=== PATIENT | male | born 1955 | race Caucasian/White ===

== ENCOUNTER 2016-10-25 18:35 | Inpatient (IN) | payer MEDICARE, OTHER ==
--- NOTE | ~2016-10-25 | CN ---
Consultation Report [facility] [address] [place]. [address] NAME: MARY PERES : 55 STATUS : ADM IN [facility]#: [id number] AGE: 60 ADM/REG DATE : 10/25/16 MR#: [id number] REPORT SERV DATE: 10/26/16 DICTATED BY: NATHAN BURGOS DATE: 10/26/16 REPORT STATUS : Draft TRANSCRIBED BY: MODL DATE: 10/26/16 INFECTIOUS DISEASE CONSULT DATE OF CONSULTATION: 10/26/2016 REASON FOR CONSULTATION: Cellulitis after cat bite. 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 Yesterday morning while breaking up a fight between two cats, he suffered bites and scratches to his right wrist area. He developed progressive swelling and redness and presented to the emergency department at [facility] yesterday evening. He was given a dose of Unasyn after initially Augmentin and then was admitted for further treatment. Blood cultures were obtained after antibiotics. The patient was evaluated by Dr. Micha Lu, who did not feel he had evidence of tenosynovitis or an abscess and recommend further antibiotic therapy and reassessment. The patient complains of pain. He denies any fevers or chills, and he has been afebrile here. PAST MEDICAL HISTORY: In addition to the above is notable for history of atrial fibrillation, chronic back pain on chronic narcotic pain medicines, BPH, hyperlipidemia, anxiety disorder. ALLERGIES: NO KNOWN DRUG ALLERGIES. OUTPATIENT MEDICATIONS: Include Lipitor, Valium, Flonase, Neurontin, MS Contin, Percocet, Protonix, Flomax, Zanaflex, Jantoven. SOCIAL HISTORY: Long-term smoker. Nondrinker. FAMILY HISTORY: Notable for heart disease. REVIEW OF SYSTEMS: Otherwise unremarkable. No nausea, vomiting, or diarrhea. PHYSICAL EXAMINATION: VITAL SIGNS: This is a 55 kg man. He has been afebrile since admission. Blood pressure 118/70, pulse 82, respiratory rate 16. GENERAL: He is alert. He complains of needing more pain medicine. HEAD AND NECK: Shows a clear oral cavity without thrush. LUNGS: Clear to auscultation. CARDIAC: Shows a regular rhythm. Normal S1, S2. Soft, 1/6 systolic murmur, left sternal border. ABDOMEN: Nondistended, soft, nontender. SKIN: Without rash. Consultation Report [address] [place]. [address] NAME: MRAY PERES : 55 STATUS : ADM IN [facility]#: [id number] AGE: 60 ADM/REG DATE : 10/25/16 MR#: [id number] REPORT SERV DATE: 10/26/16 DICTATED BY: NATHAN BURGOS DATE: 10/26/16 REPORT STATUS : Draft TRANSCRIBED BY: NATAN DATE: 10/26/16 EXTREMITIES: The patient has cellulitis changes over the right wrist extending somewhat onto the dorsum of the hand and lower forearm with soft tissue edema and mild tenderness to palpation. He does not have significant pain with range of motion of the wrist itself or with passive range of motion of his fingers. No areas of fluctuance. He has a peripheral IV without phlebitis. LABORATORY STUDIES: Admission white blood cell count was 15.2, repeat 14.7; hemoglobin 15.3; platelets 163. Creatinine 0.68. Chest x-ray is negative. Right wrist x-ray just shows some soft tissue swelling with a bit of soft tissue gas over the posterior ulnar aspect of the right wrist. IMPRESSION: Cellulitis of the right wrist and forearm following a cat bite and scratches in the patient with a history of tricuspid valve repair. PLAN: Agree with the empiric Unasyn and we will reassess tomorrow morning. YORDY/NATAN Nathan Burgos M.D. / [id number] CC: Kam Solorzano M.D. Brian Smith, M.D.
--- NOTE | ~2016-10-25 | DS ---
Discharge Summary [facility] [address] [place]. [address] NAME: MARY PERES : 55 STATUS : DIS IN PAT#: [id number] AGE: 60 ADM/REG DATE : 10/25/16 MR#: [id number] REPORT SERV DATE: 10/30/16 DICTATED BY: KEVON PONCE DATE: 10/29/16 REPORT STATUS : Draft TRANSCRIBED BY: MODL DATE: 10/29/16 ADMISSION DATE: 10/25/2016 DISCHARGE DATE: 10/29/2016 DISCHARGE DIAGNOSES: Include: 1. Right wrist and hand cellulitis secondary to a cat bite. 2. Chronic pain disorder. 3. Chronic tobacco dependence. 4. Chronic anxiety. 5. Chronic atrial fibrillation. 6. 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 DISCHARGE MEDICATIONS: As follows: Lipitor 40 mg at bedtime, Valium 10 mg three times a day, Flonase nasal spray daily to each nostril, Neurontin 300 mg three times a day, MS Contin 15 mg sustained release twice a day, Protonix 40 mg daily, Flomax 0.4 mg daily, Zanaflex 4 mg three times a day, Jantoven 2.5 mg daily, Percocet 10/325 one tablet every six hours p.r.n. for pain, and Augmentin 875 mg p.o. twice a day for two weeks, prescription written by Infectious Disease, Dr. Timur Burgos. HISTORY OF PRESENT ILLNESS: A pleasant 60-year-old white male, presented with right wrist redness, swelling, and pain. Please see initial H and P of Dr. Ursula Marie. The patient was admitted to the Hospitalist Service for further evaluation and treatment. He was started on empiric antibiotic therapy. Lab work was ordered and followed. CONSULTANTS DURING THIS ADMISSION: Include Orthopedic, Dr. Micha Lu and Infectious Disease, Dr. Timur Burgos. CONTINUATION OF HOSPITAL COURSE: The patient did well, tolerated his antibiotics and the swelling and redness slowly began to subside each day. He was evaluated by Ortho Hand and followed closely if debridement was needed; however, this was not the case. Infectious Disease continued to follow him closely as well. His Unasyn antibiotic was continued through his admission. 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 There was a small area of fluctuance on the top that only expressed some small amount of serous fluid and bloody fluid. No pustulous discharge was noted and given his continued improvement with therapy, the patient was felt safe for discharge home on 10/29/2016 to follow up with his primary care as scheduled and he will continue antibiotics of Augmentin for two weeks. The patient was in agreement with this plan going forward. Questions were answered at bedside. I appreciate the assistance of the consultants on this case. DICTATED BY: Kevon Ponce NP CSC/NATAN Discharge Summary [address] [address] NAME: MARY PERES : 55 STATUS : DIS IN PAT#: [id number] AGE: 60 ADM/REG DATE : 10/25/16 MR#: [id number] REPORT SERV DATE: 10/30/16 DICTATED BY: KEVON PONCE DATE: 10/29/16 REPORT STATUS : Draft TRANSCRIBED BY: NATAN DATE: 10/29/16 Kevon Ponce NP / [id number] CC: MD Blayne Barroso M.D.
--- NOTE | ~2016-10-25 | HP ---
History And Physical [place] [id number] [facility] [place]. [address] NAME: MARY PERES : 55 STATUS : ADM IN [facility]#: [id number] AGE: 60 ADM/REG DATE : 10/25/16 MR#: [id number] REPORT SERV DATE: 10/26/16 DICTATED BY: URSULA MCBRIDE DATE: 10/25/16 REPORT STATUS : Draft TRANSCRIBED BY: MODL DATE: 10/25/16 DATE OF ADMISSION: 10/25/2016 CHIEF COMPLAINT: Right wrist redness, swelling, and pain after bitten by his cat this morning. HISTORY OF PRESENT ILLNESS: This is a very pleasant, 60 years old gentleman with extensive past medical history significant for Ebstein abnormality with tricuspid repair as well as CABG in 2005 at the [facility] [place], history of chronic right-sided congestive heart failure with tricuspid regurgitation, history of atrial fibrillation on chronic anticoagulation, peripheral vascular disease, BPH, hyperlipidemia, chronic pain on chronic narcotics, and history of tobacco abuse presenting today to [facility] with red wrist pain redness and swelling that started in the afternoon after he has been bitten by his cat this morning. According to the patient, his cat got into argument with another cat and according to the patient, he went to separate the cats and as a result, his cat bit him, and he bled slightly since he was on Coumadin. He has a little bit discomfort but no significant other changes at that time. He went and drove to [place], [place] and around 2 o'clock in the afternoon he started to see a little bit swelling and redness and discomfort. He went to a store to take some extl-mst-sfxofgl medications but he has been advised to come to [facility] for further evaluation and treatment. He did not have any fever and chills. He has not had any chest pain or increasing shortness of breath. No cough. No sputum production. No other complaints. It is important to note that he has been evaluated in the emergency room and after speaking with Dr. Micha Lu, the Ortho Hand on-call, he has been admitted to Hospitalist Service for further evaluation and recommendation. PAST MEDICAL HISTORY: Significant for coronary artery disease with Ebstein abnormalities and tricuspid repair in 2005. He has a right-sided heart failure chronic with tricuspid regurgitation, tobacco abuse, chronic history of atrial fibrillation rate control with chronic anticoagulation, chronic pain on chronic narcotics, BPH, peripheral vascular disease, anxiety disorder, and hyperlipidemia. PAST SURGICAL HISTORY: Include Ebstein abnormality repair and coronary artery bypass surgery. Also, he had a leg fracture repair and prior exploratory laparotomy. SOCIAL HISTORY: He smoke 3/4 pack a day for 40 years. No alcohol. No IV drugs. ALLERGIES: HE DOES NOT HAVE ANY DRUG ALLERGIES. FAMILY HISTORY: Significant for heart disease. MEDICATIONS: At home include Lipitor, Valium, Flonase, Neurontin, MS Contin, Percocet, Protonix, Flomax, Zanaflex, and Jantoven. REVIEW OF SYSTEMS: A 14-point review of systems has been obtained, and pertinent positive has been listed into History And Physical [address] [address] NAME: MARY PERES : 55 STATUS : ADM IN [facility]#: [id number] AGE: 60 ADM/REG DATE : 10/25/16 MR#: [id number] REPORT SERV DATE: 10/26/16 DICTATED BY: URSULA MCBRIDE DATE: 10/25/16 REPORT STATUS : Draft TRANSCRIBED BY: NATAN DATE: 10/25/16 the history of present illness. Otherwise, negative except those underlying above. OBJECTIVE: VITAL SIGNS: The patient is afebrile. Blood pressure 140/95, heart rate 86, respiratory rate 22, saturating 97% on room air. GENERAL: He is a chronically ill-appearing gentleman, in no acute distress. He is alert and oriented x3. He is nonfocal. He follows all his commands appropriately. HEENT: Exam shows pupils equal, round, reactive to light. Extraocular movements intact. NECK: No JVD. No lymphadenopathy. No thyromegaly appreciated. CHEST: Eval shows bilateral air entry. Clear anteroposterior. No wheezes, crackles, or rhonchi appreciated. CARDIOVASCULAR: Irregularly irregular. S1, S2 positive. No S3, no S4. There is 2/6 systolic murmur at the lower left sternal border. No rubs or gallops appreciated. ABDOMEN: Soft, nontender. No guarding. No rebound. Normal bowel sounds. No organomegaly. No masses. EXTREMITIES: No clubbing, cyanosis, or edema. The right hand and right wrist; warm, red, and slightly swollen. NEUROLOGIC: He is alert and oriented x3. He is nonfocal. He follows all his commands appropriately. LABORATORY DATA: Labs from today include sodium 139, potassium 3.7, chloride 105, CO2 of 28, BUN 10, creatinine 0.68, glucose is 92. His troponin is 0.02. His white count is 15.2, hemoglobin is 15.1, hematocrit 44.8, platelets 151. His INR is 1.7. His x-ray of the right wrist does not show any acute fracture. ASSESSMENT AND PLAN: 1. This is a very pleasant, 60 years old gentleman with right hand and right wrist cellulitis status post cat bite. 2. History of congenital heart disease with Ebstein abnormalities status post repair status post CABG. 3. Atrial fibrillation, on chronic anticoagulation. 4. Chronic right-sided heart failure with tricuspid regurg. 5. Chronic pain on chronic narcotics. 6. Anxiety disorder. 7. Hyperlipidemia. 8. Peripheral vascular disease. 9. BPH. 10.Tobacco abuse. PLAN: The patient is going to be admitted to Hospitalist Service. 1. Regarding right hand wrist cellulitis, we are going to place him on Unasyn, trujillo cultures. We are going to provide supportive treatment, pain control. Consult Dr. Micha Lu, Ortho Hand who is going to evaluate the patient in the morning. We are going to keep the patient n.p.o. past midnight per Dr. Lu recommendation and hold Coumadin. 2. History of coronary artery disease with bypass surgery and Ebstein abnormality status post tricuspid repair in 2005. History And Physical [address] [address] NAME: MARY PERES : 55 STATUS : ADM IN [facility]#: [id number] AGE: 60 ADM/REG DATE : 10/25/16 MR#: [id number] REPORT SERV DATE: 10/26/16 DICTATED BY: URSULA MCBRIDE DATE: 10/25/16 REPORT STATUS : Draft TRANSCRIBED BY: MODTeo DATE: 10/25/16 3. History of atrial fibrillation, rate controlled on chronic anticoagulation. 4. Chronic pain. We will continue his home medications. 5. Anxiety disorder. We will continue his home medications. 6. Tobacco abuse. We are going to provide nicotine patch. Nebulizer treatment p.r.n. and aggressive tobacco cessation. Education has been provided to the patient as well. 7. BPH. Continue his home medications. 8. Hyperlipidemia. Continue his home medications. We are going to provide reasonable pain and nausea control as well as GI and DVT prophylaxis with SCDs. That has been discussed extensively with the patient. All the questions have been answered in full. Further workup and recommendation pending above. It is worthwhile to note that the patient is going to be followed up by Hospitalist Service. CF/SARINAL Ursula Mcbride M.D. / [id number] CC: Kam Solorzano M.D.
--- NOTE | ~2016-10-25 | CN ---
Consultation Report [facility] [address] [place]. [address] NAME: MARY PERES : 55 STATUS : ADM IN PAT#: [id number] AGE: 60 ADM/REG DATE : 10/25/16 MR#: [id number] REPORT SERV DATE: 10/26/16 DICTATED BY: ELLE LU DATE: 10/26/16 REPORT STATUS : Draft TRANSCRIBED BY: MODL DATE: 10/26/16 CONSULTATION NOTE DATE OF CONSULTATION: 10/26/2016 CHIEF COMPLAINT: CAT bite, right arm. HISTORY OF PRESENT ILLNESS: 60-year-old, right-hand dominant, white male, who was bitten and scratched by his own cat yesterday, while breaking up a cat fight, mainly on his right forearm and wrist. He came to the emergency room. X-ray showed some air in the soft tissues. He was admitted by the hospitalist and placed on Unasyn. ALLERGIES: NONE KNOWN. PAST SURGERIES: Coronary artery bypass and valve replacement, and exploratory lap. MEDICAL PROBLEMS: History of heart disease, increased cholesterol, anxiety, chronic pain, and BPH. MEDICATIONS: Per the med list. SOCIAL HISTORY: He is single. Lives with a friend. He does not work. He lives in [place]. Smokes less than a pack per day. He does not drink alcohol. FAMILY HISTORY: Heart disease and cancer. REVIEW OF SYSTEMS: Positive for abdominal trauma in the past. Positive for heart disease. Negative for hypertension or diabetes. Positive for anxiety. Positive for chronic pain. PHYSICAL EXAMINATION: GENERAL: Shows a pleasant, cooperative, somewhat slow white male. EXTREMITIES: There was multiple scratches and scabs on the dorsal aspect of the wrist and distal forearm, as well as the ulnar side of the wrist. There was some mild redness circled in indelible marker on the dorsal aspect of the wrist. He has about a 1 to 2 cm flexion lag. Can extend the fingers all completely. General wrist range of motion is minimally tender. No abscess or fluctuance is seen. IMPRESSION: Right wrist and forearm cellulitis, secondary to cat bite. PLAN: At that point, it appears to be just cellulitis. I do not see any abscess or severe tenosynovitis present, so, we will try to see how he does with IV antibiotic treatment. If he fails to improve or abscess forms then I and D would be considered via the Infectious Disease consult. Consultation Report [facility] [address] [place]. [address] NAME: MARY PERES : 55 STATUS : ADM IN PAT#: [id number] AGE: 60 ADM/REG DATE : 10/25/16 MR#: [id number] REPORT SERV DATE: 10/26/16 DICTATED BY: ELLE LU DATE: 10/26/16 REPORT STATUS : Draft TRANSCRIBED BY: MODL DATE: 10/26/16 BS/NATAN Elle Lu M.D. / [id number] CC: Kam Solorzano M.D.
[~2016-10-25 18:35] MED LIST: ASAB PO; CENTRUM TAB1 TAB PO; COR20 PO; ENDOCET1 TA3 PO; FLOMAX4 PO; FLONASE NAS; JANTOVEN1 MG PO; JANTOVEN2 MG PO; JANTOVEN2.5 MG; JANTOVEN2.5 MG PO; JANTOVEN3 MG; LEVAQUIN750 MG PO; LIPITOR40 PO; LOP25 PO; LOVENOX40 SC; MSCONT15 PO; NEUR300 PO; ORAMORPH SR15 MG PO; OXYCON10 PO; PAX20 PO; PERCOCET 10/3251 TAB PO; PROTONIX PO; PROTONIX20 MG PO; V180SR PO; VALIUM10 MG PO; VERELAN180 MG PO; VITS; [UNRECOGNIZED DRUG - OTHER]
[2016-10-25 19:44] LABS: BASOPHILS 0.1 %; BASOPHILS ABSOLUTE 0.02 10/3/uL (0.0-0.16); EOSINOPHILS 0.9 %; EOSINOPHILS ABSOLUTE 0.13 10/3/uL (0.0-0.53); ER CBC TAT 0 Hrs 03 Mins; HEMOGLOBIN 15.1 g/dL (13.6-17.8); IMMATURE GRANULOCYTES 0.2 %; IMMATURE GRANULOCYTES ABSOLUTE 0.03 10/3/uL (0.0-0.11); LYMPHOCYTES 20.2 %; LYMPHOCYTES ABSOLUTE 3.08 10/3/uL (0.67-4.30); MEAN CORPUS HGB CONC 33.7 g/dL (32.0-36.0); MEAN CORPUSCULAR HEMOGLOB 30.4 pg (26.0-34.0); MEAN CORPUSCULAR VOLUME 90.3 fL (80-100); MEAN PLATELET VOLUME 9.9 fL (9.2-13.0); MONOCYTES 9.3 %; MONOCYTES ABSOLUTE 1.41 10/3/uL (0.21-1.20); NEUTROPHILS 69.3 %; NEUTROPHILS ABSOLUTE 10.55 10/3/uL (2.02-8.40); PLATELET COUNT 151 10/3/uL (150-400); RBC DISTRIBUTION WIDTH 14.2 % (12.0-16.0); RED CELL COUNT 4.96 10/6/uL (4.7-6.1); WHITE BLOOD CELLS 15.2 10/3/uL (4.5-10.5)
[2016-10-25 19:46] LABS: HEMATOCRIT 44.8 % (40.0-51.0); MANUAL DIFF NO %
[2016-10-25 19:53] LABS: INTERNATIONAL NORMAL RATI 1.7 UNITS (-); PARTIAL THROMBO TIME 30.8 SEC (22.5-37.2)
[2016-10-25 20:01] LABS: BUN (BLOOD UREA NITROGEN) 10 MG/DL (6-23); CALCIUM, SERUM 8.4 MG/DL (8.5-10.4); CHEST PAIN PROFILE TAT 0 Hrs 20 Mins; CHLORIDE, SERUM 105 MMOL/L (96-112); CO2 (CARBON DIOXIDE) 28 MMOL/L (24-34); CREATININE 0.68 MG/DL (0.70-1.30); GFR AFRICAN AMERICAN 120 ML/MIN (>=60); GFR NON AFRICAN AMERICAN 104 ML/MIN (>=60); POTASSIUM, SERUM 3.7 MMOL/L (3.5-5.3); SODIUM, SERUM 139 MMOL/L (135-148); TROPONIN I 0.02 NG/ML (<0.05)
[2016-10-25 20:05] LABS: GLUCOSE, SERUM 92 MG/DL (60-99)
[2016-10-25 20:28] LABS: PROCALCITONIN <0.05 ng/mL (<0.5)
[2016-10-25] MEDS ORDERED: FLOMAX4 PO (21:17)
[2016-10-25] MEDS ORDERED: FLONASE NAS (21:19)
[2016-10-25] MEDS ORDERED: ZANAFLEX 4 MG TA4 MG PO (21:21)
[2016-10-26 02:13] LABS: BASOPHILS 0.1 %; BASOPHILS ABSOLUTE 0.01 10/3/uL (0.0-0.16); EOSINOPHILS 0.7 %; EOSINOPHILS ABSOLUTE 0.11 10/3/uL (0.0-0.53); HEMATOCRIT 46.3 % (40.0-51.0); HEMOGLOBIN 15.3 g/dL (13.6-17.8); IMMATURE GRANULOCYTES 0.2 %; IMMATURE GRANULOCYTES ABSOLUTE 0.03 10/3/uL (0.0-0.11); LYMPHOCYTES ABSOLUTE 1.91 10/3/uL (0.67-4.30); MEAN CORPUSCULAR VOLUME 90.8 fL (80-100); MEAN PLATELET VOLUME 10.9 fL (9.2-13.0); MONOCYTES 11.3 %; MONOCYTES ABSOLUTE 1.66 10/3/uL (0.21-1.20); NEUTROPHILS 74.7 %; NEUTROPHILS ABSOLUTE 10.96 10/3/uL (2.02-8.40); PLATELET COUNT 163 10/3/uL (150-400); RBC DISTRIBUTION WIDTH 14.1 % (12.0-16.0); WHITE BLOOD CELLS 14.7 10/3/uL (4.5-10.5)
[2016-10-26 02:14] LABS: MANUAL DIFF NO %
[2016-10-26 02:23] LABS: INTERNATIONAL NORMAL RATI 1.9 UNITS (-); PARTIAL THROMBO TIME 33.3 SEC (22.5-37.2); PROTIME (NOT ORD) 21.4 SEC (12.0-14.5)
[2016-10-26 02:30] LABS: WBC (NOT ORDERED) (RFLEX) 0 (0-5)
[2016-10-26 02:37] LABS: ACETAMINOPHEN LEVEL (TYLENOL) 2.8 MCG/ML (10.0-20.0); ALBUMIN 3.7 G/DL (3.5-5.0); ALCOHOL < 10 MG/DL (0); ALKALINE PHOSPHATASE 77 U/L (45-117); BUN (BLOOD UREA NITROGEN) 7 MG/DL (6-23); CALCIUM, SERUM 8.2 MG/DL (8.5-10.4); CHLORIDE, SERUM 107 MMOL/L (96-112); CO2 (CARBON DIOXIDE) 28 MMOL/L (24-34); CREATININE 0.69 MG/DL (0.70-1.30); DIRECT BILIRUBIN 0.2 MG/DL (0.0-0.4); FREE T4 1.24 NG/DL (0.76-1.46); GFR AFRICAN AMERICAN 120 ML/MIN (>=60); GFR NON AFRICAN AMERICAN 103 ML/MIN (>=60); GLUCOSE, SERUM 98 MG/DL (60-99); INDIRECT BILIRUBIN(NOT ORDER) 0.4 MG/DL (0.1-0.9); PHOSPHORUS, SERUM 2.7 MG/DL (2.5-4.5); POTASSIUM, SERUM 3.4 MMOL/L (3.5-5.3); SALICYLATE 2.4 MG/DL (-); SGOT(AST) 28 U/L (5-40); SGPT(ALT) 25 U/L (5-65); SODIUM, SERUM 141 MMOL/L (135-148); TOTAL BILIRUBIN 0.6 MG/DL (0-1.2); TOTAL PROTEIN 6.8 G/DL (6.0-8.5); ULTRASENSITIVE TSH 0.943 MCIU/ML (0.358-3.740)
[2016-10-26 03:33] LABS: ASCORBIC ACID (UR NOT ORDER) NEG (NEG); BILIRUBIN, URINE NEGATIVE (NEG); KETONE, URINE NEGATIVE (NEG); LEUKOCYTE ESTERASE(NOT OR NEG (NEG)
[2016-10-27 05:14] LABS: BASOPHILS 0.1 %; BASOPHILS ABSOLUTE 0.01 10/3/uL (0.0-0.16); EOSINOPHILS ABSOLUTE 0.11 10/3/uL (0.0-0.53); HEMOGLOBIN 13.4 g/dL (13.6-17.8); IMMATURE GRANULOCYTES 0.3 %; IMMATURE GRANULOCYTES ABSOLUTE 0.03 10/3/uL (0.0-0.11); LYMPHOCYTES ABSOLUTE 2.55 10/3/uL (0.67-4.30); MEAN CORPUS HGB CONC 32.9 g/dL (32.0-36.0); MEAN CORPUSCULAR HEMOGLOB 30.1 pg (26.0-34.0); MEAN CORPUSCULAR VOLUME 91.5 fL (80-100); MEAN PLATELET VOLUME 10.6 fL (9.2-13.0); MONOCYTES 13.5 %; MONOCYTES ABSOLUTE 1.43 10/3/uL (0.21-1.20); NEUTROPHILS 61.1 %; PLATELET COUNT 136 10/3/uL (150-400); RBC DISTRIBUTION WIDTH 14.6 % (12.0-16.0); RED CELL COUNT 4.45 10/6/uL (4.7-6.1); WHITE BLOOD CELLS 10.6 10/3/uL (4.5-10.5)
[2016-10-27 05:16] LABS: HEMATOCRIT 40.7 % (40.0-51.0); MANUAL DIFF NO %; PROTIME (NOT ORD) 22.4 SEC (12.0-14.5)
[2016-10-27 05:22] LABS: BUN (BLOOD UREA NITROGEN) 9 MG/DL (6-23); CALCIUM, SERUM 8.2 MG/DL (8.5-10.4); CHLORIDE, SERUM 109 MMOL/L (96-112); CO2 (CARBON DIOXIDE) 24 MMOL/L (24-34); CREATININE 0.72 MG/DL (0.70-1.30); GFR AFRICAN AMERICAN 118 ML/MIN (>=60); GFR NON AFRICAN AMERICAN 101 ML/MIN (>=60); GLUCOSE, SERUM 103 MG/DL (60-99); POTASSIUM, SERUM 3.6 MMOL/L (3.5-5.3); SODIUM, SERUM 139 MMOL/L (135-148)
[2016-10-28 07:11] LABS: INTERNATIONAL NORMAL RATI 1.8 UNITS (-); PROTIME (NOT ORD) 20.7 SEC (12.0-14.5)
[2016-10-28 07:17] LABS: BASOPHILS 0.1 %; BASOPHILS ABSOLUTE 0.01 10/3/uL (0.0-0.16); BUN (BLOOD UREA NITROGEN) 10 MG/DL (6-23); CALCIUM, SERUM 8.3 MG/DL (8.5-10.4); CHLORIDE, SERUM 109 MMOL/L (96-112); CO2 (CARBON DIOXIDE) 27 MMOL/L (24-34); CREATININE 0.61 MG/DL (0.70-1.30); EOSINOPHILS 1.7 %; EOSINOPHILS ABSOLUTE 0.16 10/3/uL (0.0-0.53); GFR AFRICAN AMERICAN 126 ML/MIN (>=60); GFR NON AFRICAN AMERICAN 109 ML/MIN (>=60); GLUCOSE, SERUM 84 MG/DL (60-99); HEMATOCRIT 39.9 % (40.0-51.0); IMMATURE GRANULOCYTES 0.2 %; IMMATURE GRANULOCYTES ABSOLUTE 0.02 10/3/uL (0.0-0.11); LYMPHOCYTES 22.4 %; MEAN CORPUS HGB CONC 32.6 g/dL (32.0-36.0); MEAN CORPUSCULAR HEMOGLOB 29.9 pg (26.0-34.0); MEAN CORPUSCULAR VOLUME 91.7 fL (80-100); MEAN PLATELET VOLUME 10.3 fL (9.2-13.0); MONOCYTES 14.6 %; MONOCYTES ABSOLUTE 1.37 10/3/uL (0.21-1.20); NEUTROPHILS ABSOLUTE 5.72 10/3/uL (2.02-8.40); PLATELET COUNT 127 10/3/uL (150-400); POTASSIUM, SERUM 3.6 MMOL/L (3.5-5.3); RBC DISTRIBUTION WIDTH 14.2 % (12.0-16.0); RED CELL COUNT 4.35 10/6/uL (4.7-6.1); SODIUM, SERUM 143 MMOL/L (135-148); WHITE BLOOD CELLS 9.4 10/3/uL (4.5-10.5)
[2016-10-28 07:18] LABS: MANUAL DIFF NO %
[2016-10-29 05:20] LABS: INTERNATIONAL NORMAL RATI 1.6 UNITS (-); PROTIME (NOT ORD) 18.8 SEC (12.0-14.5)
== END 2016-10-29 11:59 | disposition home or self-care (01) | DRG 603 ==
LOC: ER 18:35 → 2SO 22:06
PROVIDERS: Hospitalist; Internal Medicine; Nurse Practitioner Acute Care
DX: L03.113 Cellulitis of right upper limb (principal); I50.32 Chronic diastolic (congestive) heart failure; S60.871A Other superficial bite of right wrist, initial encounter; W55.01XA Bitten by cat, initial encounter; I25.10 Atherosclerotic heart disease of native coronary artery without angina pectoris; F17.210 Nicotine dependence, cigarettes, uncomplicated; I36.1 Nonrheumatic tricuspid (valve) insufficiency; I48.2 Chronic atrial fibrillation; G89.29 Other chronic pain; N40.0 Benign prostatic hyperplasia without lower urinary tract symptoms; I73.9 Peripheral vascular disease, unspecified; F41.9 Anxiety disorder, unspecified; E78.5 Hyperlipidemia, unspecified; E78.00 Pure hypercholesterolemia, unspecified; Z95.1 Presence of aortocoronary bypass graft; Z98.890 Other specified postprocedural states; Z82.49 Family history of ischemic heart disease and other diseases of the circulatory system
CPT/HCPCS: 71010; 73110-RT; 80048; 80076; 80307; 81001; 83036; 83615; 83735; 83880; 84100; 84132; 84145; 84439; 84443; 84484; 85025; 85610; 85730; 87040; 93005; 96365; 99285; A9270-GY; J0295